=== PATIENT | male | born 1955 | race Caucasian/White ===

== ENCOUNTER → 2020-11-14 | Outpatient (CLI) | payer MEDICARE, SELFPAY ==
[2015-07-07 06:22] VITALS: BMI 38.1
== END | disposition home or self-care (01) ==
PROVIDERS: PCP Family Medicine; Referring Provider Urology; Visit Provider Urology
DX: N39.0 Urinary tract infection, site not specified (principal)
CPT/HCPCS: 87077; 87086; 87088; 87186

== ENCOUNTER → 2024-05-31 | Outpatient (CLI) | payer MEDICARE, SELFPAY | END | disposition home or self-care (01) | PROVIDERS: PCP Family Medicine; Referring Provider Urology; Visit Provider Urology | DX: R39.15 Urgency of urination (principal) | CPT/HCPCS: 87086 ==

== ENCOUNTER 2024-07-07 07:24 | Day surgery (SDC) | payer MEDICARE, SELFPAY ==
--- NOTE | 2024-07-02 09:24 | EKG12_ITS ---
Test Reason : PRE OP Blood Pressure : / mmHG Vent. Rate : 072 BPM Atrial Rate : 072 BPM P-R Int : 144 ms QRS Dur : 070 ms QT Int : 394 ms P-R-T Axes : 077 045 070 degrees QTc Int : 431 ms Normal sinus rhythm Nonspecific T wave abnormality Abnormal ECG Confirmed by JAY SEGAL, MELISSA ([id number]), health editor BEBETO OLIVIA ([id number]) on 07/02/2024 1:17:16 PM Referred By: LINDSEY Confirmed By:MELISSA THOMPSON MD
[2024-07-02 10:29] LABS: Hematocrit 42.3 % (40-54); Mean Corp Hgb Conc 33.1 g/dL (32-36); Mean Corpuscular Hgb 31.7 pg (27.0-32.0); Mean Corpuscular Volume 95.9 fL (80-94); Mean Platelet Vol. 8.9 fl (6.2-12.0); Platelet Count 259 K/mm3 (150-450); RBC Distribution Width CV 14.1 % (11.6-14.6); RBC Distribution Width SD 49.9 fl (35.1-43.9); Red Blood Count 4.41 M/mm3 (4.6-6.2); White Blood Count 7.4 K/mm3 (4.4-11.0)
[2024-07-02 10:49] LABS: Anion Gap 5 (5-15); BUN 11 mg/dL (7-18); BUN/Creat Ratio 11.7 RATIO (10-20); Calcium,Total 9.6 mg/dL (8.5-10.1); Chloride 110 mmol/L (98-107); Creatinine, Serum 0.94 mg/dL (0.70-1.30); EST Glomerular Filtration Rate 84 mL/min (>60); Est Glom Filt Rate - Afr Amer 102 mL/min (>60); Glucose 106 mg/dL (74-106); Potassium 3.9 mmol/L (3.5-5.1); Sodium Level 140 mmol/L (136-145)
[2024-07-02 11:09] LABS: Hemoglobin A1c 5.3 % (3.8-5.6)
[2024-07-07] VITALS (8 sets, daily range): BP systolic 135–152; BP diastolic 67–84; PULSE 64–72; RESP 16–18; TEMP 35.7–36.7; O2SAT 97–100; BMI 29.0
--- NOTE | 2024-07-07 07:51 | PRE.ANES_ITS ---
ASA Classification* ASA Classification ASA Classification: 3 Assessment & Plan Anesthesia* Anesthesia Assessment Anesthesia Assessment: Discussed sedation and/or anesthesia options, risks, benefits, and alternatives with patient/parents/legal guardian/POA. Questions invited. The patient/parents/legal guardian/POA seems to understand and agrees to proceed with anesthesia plan. Reviewed the physical assessment, medical history, allergy history and patient home medications list prior to surgery/procedure/anesthetic and documented any changes. Performed airway and anesthesia risk assessments. Anesthesia Type Anesthesia Type: General Anesthesia Focused Assessment* Airway Assessment Mouth opens: >3 cm Mallampati Score: II Focused Labs Anesthesia Preop lab: CBC WBC 7.4 K/mm3 (4.4-11.0) 07/02/24 09:47 RBC 4.41 M/mm3 (4.6-6.2) L 07/02/24 09:47 Hgb 14.0 g/dL (13.0-16.5) 07/02/24 09:47 Hct 42.3 % (40-54) 07/02/24 09:47 Plt Count 259 K/mm3 (150-450) 07/02/24 09:47 CHEMISTRY Potassium 3.9 mmol/L (3.5-5.1) 07/02/24 09:47 Sodium 140 mmol/L (136-145) 07/02/24 09:47 Magnesium 1.7 mg/dL (1.8-2.4) L 07/07/15 11:15 BUN 11 mg/dL (7-18) 07/02/24 09:47 Creatinine 0.94 mg/dL (0.70-1.30) 07/02/24 09:47 Glucose 106 mg/dL (74-106) 07/02/24 09:47 COAG Pre-Assessment Diagnosis/Proposed Procedure Planned Operative Procedure(s): TURP Anesthesia History Anesthesia History - technical sales manager: Anesthesia History - technical sales manager Hx Hospitalization Yes: 12/2023-03/2024 OFF AND 06/23/24 10:27 ON FOR TIA AND FALLS/UTI/ LONG HAULER COVID Any Problems With Anesthesia No 06/23/24 10:27 Cholinesterase deficiency No 06/23/24 10:27 You/Your Family Experience No 06/23/24 10:27 fever (hyperthermia) with Relationship Recent Exposure to Contagious No 07/07/15 06:22 Disease Does patient have nerve No 06/23/24 10:27 stimulator Patient instructed to have device shut off --Does patient have Pacemaker or ICD? When Was Last Pacemaker Check QUESTION #4 FULL TEXT: You/Your Family Experience fever (hyperthermia) with Anesthesia Last Oral Intake Last Oral intake: Last Oral Intake NPO since Meds taken in AM with sips of water? Meds patient instructed to take am of surgery PONV PONV - technical sales manager: PONV - technical sales manager Female No 06/23/24 10:27 HX of Motion Sickness No 06/23/24 10:27 HX of N/V After Surgery No 06/23/24 10:27 Non-Smoker Yes 06/23/24 10:27 Duration of Surgery greater Yes 06/23/24 10:27 than 60 minutes Number of Risk Factors 2 06/23/24 10:27 PONV Score Moderate Risk 06/23/24 10:27 Respiratory Assessment Respiratory Assessment - technical sales manager: Respiratory Tract Infection Hx - technical sales manager Hx Respiratory Tract Infection No 06/23/24 10:27 STOP Sleep Apnea STOP Sleep Apnea - technical sales manager: STOP Sleep Apnea - technical sales manager Hx Hypertension Yes: CONTROLLED WITH MED 06/23/24 10:27 Hx Sleep Apnea Yes 06/23/24 10:27 CPAP Yes 06/23/24 10:27 BIPAP No 06/23/24 10:27 Do you snore loudly (louder than talking or can be heard Do you often feel tired/ fatigued/ sleepy during daytime? Has anyone observed you stop breathing during sleep? STOP Results Positive 06/23/24 10:27 QUESTION #5 FULL TEXT : Do you snore loudly (louder than talking or can be heard through closed doors)? Tobacco Use History Tobacco Use History - technical sales manager: Tobacco Use History - technical sales manager Tobacco Use Smoking Status Never smoker 06/23/24 10:27 Hx Tobacco Use No 06/23/24 10:27 Years Smoking Packs Smoked per Day Smoking Cessation Date was within the last 15 years Hx Smoking Cessation Date Hx Smoking Cessation Counseling Hematologic Medial History Hematologic Hx - technical sales manager: Hematologic Medical Hx - public address announcer Hx of Blood Transfusion No 06/23/24 10:27 Hx of Transfusion in last 3 No 06/23/24 10:27 Months Date of Last Transfusion (if within last 3 months) Ever experience any problems No 06/23/24 10:27 with transfusion(s)? Specify any problems Hx of Preganancy in last 3 N/A 06/23/24 10:27 Months Nurse Filling Out Transfusion DSCHRIBER 06/23/24 10:27 & Questions: Date: 06/23/24 06/23/24 10:27 Time: 10:31 06/23/24 10:27 Patient unable to answer at this time (ie. confused, unrespo /Reproduction History /Reproductive History - technical sales manager: /Reproductive Hx- technical sales manager Hx Now No 06/23/24 10:27 Gestational Age (in weeks): EDC: Hx Hx Para Hx Section SAB No 06/23/24 10:27 Active Medications Active Medications: Current Medications Generic Name Dose Route Start Last Admin Trade Name Freq PRN Reason Stop Dose Admin Cefazolin Sodium 2 gm/ N/A 20 mls @ 400 mls/hr 07/07/24 11:55 IV 07/07/24 11:57 PREOP ONE Lactated Ringer's 1,000 mls @ 15 mls/hr 07/07/24 07:45 IV 07/10/24 02:24 .Q48H [facility] Protocol PFSH Medical History Deaf Wears glasses Wears hearing aid Depression Diabetes Rheumatoid arthritis Bladder disease Prostate disease Fatty liver High cholesterol Back pain COVID-19 long hauler Syncope TIA (transient ischemic attack) Seizures Dietary restriction History of diverticulitis Hiccups Gastric reflux Non-smoker CPAP (continuous positive airway pressure) dependence Asthma History of echocardiogram History of stress test Cardiology follow-up encounter Hypertension History of heart attack Home Medications ?Medication ?Instructions ?Recorded ?Last Taken ?Type ascorbic acid (vitamin C) 500 mg 1,000 mg PO QHS 04/17/15 Unknown History tablet (Vitamin C) bupropion HCl 150 mg 24 hr tablet, 150 mg PO DAILY 04/17/15 Unknown History extended release coenzyme Q10 100 mg capsule (Co 100 mg PO DAILY 04/17/15 Unknown History Q-10) folic acid 400 mcg tablet 0.8 mg PO QHS 04/17/15 Unknown History multivitamin with folic acid 400 1 tab PO DAILY 04/17/15 Unknown History mcg tablet (Thera) niacin 500 mg tablet,extended 500 mg PO QHS 04/17/15 Unknown History release nitroglycerin 0.4 mg sublingual 0.4 mg sublingual Q5M PRN Chest 04/17/15 Unknown History tablet Pain vitamin E 268 mg (400 unit) capsule 400 unit PO DAILY 04/17/15 Unknown History albuterol sulfate 90 mcg/actuation 1 inh inhalation Q4H PRN shortness 06/23/24 Unknown History breath activated powder inhaler of breath or wheezing allopurinol 300 mg tablet 300 mg PO DAILY 06/23/24 Unknown History aspirin 325 mg capsule 325 mg PO DAILY 06/23/24 Unknown History atorvastatin 40 mg tablet 40 mg PO QHS 06/23/24 Unknown History calcium carbonate 500 mg PO DAILY 06/23/24 Unknown History cholecalciferol (vitamin D3) 25 25 mcg PO DAILY 06/23/24 Unknown History mcg (1,000 unit) capsule (Vitamin D3) cyanocobalamin-liver extract tablet 1 tab PO DAILY 06/23/24 Unknown History fluticasone furoate 200 1 inh inhalation DAILY 06/23/24 Unknown History mcg-vilanterol 25 mcg/dose inhalation powder (Breo Ellipta) magnesium 200 mg tablet 400 mg PO QHS 06/23/24 Unknown History metoprolol succinate 100 mg 100 mg PO QHS 06/23/24 Unknown History tablet,extended release 24 hr loqpp-8-soi-fish oil 1 gram capsule 1 cap PO DAILY 06/23/24 Unknown History omeprazole 40 mg capsule,delayed 20 mg PO DAILY 06/23/24 Unknown History release potassium chloride 20 mEq 20 meq PO DAILY 06/23/24 Unknown History tablet,extended release(part/cryst) semaglutide 2 mg/dose (8 mg/3 mL) 2 mg subcut MO 06/23/24 Unknown History subcutaneous pen injector (Ozempic) vit C 250 mg-E 90 mg-zinc 40 1 tab PO BID 06/23/24 Unknown History mg-copper 1 [id number]-lbpaaf chew tablet (PreserVision AREDS-2) Allergy/AdvReac Type Severity Reaction Status Date / Time gabapentin Allergy Severe Angioedema Verified 06/23/24 10:08 methotrexate Allergy Severe Angioedema Verified 06/23/24 10:08 leflunomide Allergy Intermediate Other Verified 06/25/24 14:11 sulfasalazine Allergy Intermediate Other Verified 06/25/24 14:11 Surgical History History of esophagogastroduodenoscopy (EGD) Hx of colonoscopy Hx of lithotripsy Hx of lumbar discectomy History of lumbar fusion Hx of prostatectomy Social History Smoking Status: Never smoker Review of Systems (Anesthesia) ROS Narrative System reviewed and no additional complaints, except as documented.
[2024-07-07] MEDS: Pantoprazole Sodium 20 MG Tablet PO (08:17)
[2024-07-07] MEDS: Lactated Ringers 1,000 ML 15 ML IV (08:31)
[2024-07-07 08:54] LABS: Bedside Glucose 94 mg/dL (74-106)
--- NOTE | 2024-07-07 09:35 | PROS_PTH ---
PATIENT: KOURTNEY BANKS LOC: [facility] U#:[id number] AGE/SX: 69/M ROOM: RE07/07/[address]: Dr. Tavo Marr MD : [id number] BED: DIS: 07/07/2024 SPEC #: [id number] RECD: 07/07/24 14:00 STATUS: JONATHAN JAMA #: [id number] XAVIER: 07/07/24 09:[address]: Tavo Marr DEPT: SURGICAL PATHOLOGY RECD BY: Dennys Cesar ENTERED: 07/08/24 07:23 SP TYPE: TURP OTHR DR: Dr. Rigo Saxena MD Tissues: Prostate, NOS Procedures: Surgery Specimen Level IV HEADER OPERATION: Transurethral resection prostate PRE-OP DIAGNOSIS: Benign prostatic hypertrophy TISSUE SUBMITTED: Prostate chips MICROSCOPIC DIAGNOSIS Prostate, transurethral resection: Benign nodular hyperplasia, primarily stromal type. Chronic inflammation. Benign urothelium with associated mild chronic inflammation. AM.mr 07/09/2024 MICROSCOPIC DESCRIPTION Slides are reviewed. GROSS DESCRIPTION Received is one container labeled with the patient's name and designated prostate tissue. The specimen consists of multiple irregular fragments of pink-donaldson, rubbery, soft tissue that in aggregate weigh 5.3 gm and measure in aggregate 4.5 x 4.5 x 1.0 cm. The entire specimen is submitted in six cassettes. 07/08/2024 TC:3 CPT: 84472
--- NOTE | 2024-07-07 10:25 | HP.PCM_ITS ---
HPI - General General Date of Service: 07/07/24 Chief Complaint: BPH with obstruction HPI Narrative KOURTNEY BANKS, is a 69 M who presents for a transurethral resection of the prostate he has had a prior prior prostate procedure long time ago and he is got some obstructions organ to do a TURP probably will send him home with a 20 Kinyarwanda catheter. [facility] Medical History Deaf Wears glasses Wears hearing aid Depression Diabetes Rheumatoid arthritis Bladder disease Prostate disease Fatty liver High cholesterol Back pain COVID-19 bertin hauler Syncope TIA (transient ischemic attack) Seizures Dietary restriction History of diverticulitis Hiccups Gastric reflux Non-smoker CPAP (continuous positive airway pressure) dependence Asthma History of echocardiogram History of stress test Cardiology follow-up encounter Hypertension History of heart attack Home Medications ?Medication ?Instructions ?Recorded ?Last Taken ?Type ascorbic acid (vitamin C) 500 mg 1,000 mg PO QHS 04/17/15 07/06/24 History tablet (Vitamin C) bupropion HCl 150 mg 24 hr tablet, 150 mg PO DAILY 04/17/15 07/06/24 History extended release coenzyme Q10 100 mg capsule (Co 100 mg PO DAILY 04/17/15 07/06/24 History Q-10) folic acid 400 mcg tablet 0.8 mg PO QHS 04/17/15 07/06/24 History multivitamin with folic acid 400 1 tab PO DAILY 04/17/15 07/06/24 History mcg tablet (Thera) niacin 500 mg tablet,extended 500 mg PO QHS 04/17/15 07/06/24 History release nitroglycerin 0.4 mg sublingual 0.4 mg sublingual Q5M PRN Chest 04/17/15 03/28/24 History tablet Pain vitamin E 268 mg (400 unit) capsule 400 unit PO DAILY 04/17/15 07/06/24 History albuterol sulfate 90 mcg/actuation 1 inh inhalation Q4H PRN shortness 06/23/24 Unknown History breath activated powder inhaler of breath or wheezing allopurinol 300 mg tablet 300 mg PO DAILY 06/23/24 07/06/24 History aspirin 325 mg capsule 325 mg PO DAILY 06/23/24 06/30/24 History atorvastatin 40 mg tablet 40 mg PO QHS 06/23/24 Unknown History calcium carbonate 500 mg PO DAILY 06/23/24 07/06/24 History cholecalciferol (vitamin D3) 25 25 mcg PO DAILY 06/23/24 07/06/24 History mcg (1,000 unit) capsule (Vitamin D3) cyanocobalamin-liver extract tablet 1 tab PO DAILY 06/23/24 07/06/24 History fluticasone furoate 200 1 inh inhalation DAILY 06/23/24 07/06/24 History mcg-vilanterol 25 mcg/dose inhalation powder (Breo Ellipta) magnesium 200 mg tablet 400 mg PO QHS 06/23/24 07/06/24 History metoprolol succinate 100 mg 100 mg PO QHS 06/23/24 07/06/24 History tablet,extended release 24 hr mblep-9-vig-fish oil 1 gram capsule 1 cap PO DAILY 06/23/24 07/06/24 History omeprazole 40 mg capsule,delayed 20 mg PO DAILY 06/23/24 07/07/24 History release potassium chloride 20 mEq 20 meq PO DAILY 06/23/24 07/06/24 History tablet,extended release(part/cryst) semaglutide 2 mg/dose (8 mg/3 mL) 2 mg subcut MO 06/23/24 06/29/24 History subcutaneous pen injector (Ozempic) vit C 250 mg-E 90 mg-zinc 40 1 tab PO BID 06/23/24 07/06/24 History mg-copper 1 [id number]-hgvqvj-wkvaqv chew tablet (PreserVision AREDS-2) Allergy/AdvReac Type Severity Reaction Status Date / Time gabapentin Allergy Severe Angioedema Verified 07/07/24 08:09 methotrexate Allergy Severe Angioedema Verified 07/07/24 08:09 leflunomide Allergy Intermediate Other Verified 07/07/24 08:09 sulfasalazine Allergy Intermediate Other Verified 07/07/24 08:09 Surgical History History of esophagogastroduodenoscopy (EGD) Hx of colonoscopy Hx of lithotripsy Hx of lumbar discectomy History of lumbar fusion Hx of prostatectomy Social History Smoking Status: Never smoker Vital Signs Vital Signs Vital Signs: 07/07/24 08:14 07/07/24 08:14 Temperature 98.0 F Temperature Source Temporal Pulse Rate 72 Respiratory Rate 18 Respiratory Pattern Normal Blood Pressure 135/67 H Blood Pressure Mean 89 Blood Pressure Source Monitor Blood Pressure Position Semi-Fowlers Blood Pressure Location Left Arm Pulse Ox 100 Oxygen Delivery Method Room Air Weight Weight: 89 kg Body Mass Index (BMI) 29.0 Results Lab / Micro Data 07/02/24 09:47 07/02/24 09:47 Labs: Laboratory Results - last 24 hr 07/07/24 08:08: POC Glucose 94
[2024-07-07] MEDS: Cefazolin 2 GM in Syringe IV (10:47)
--- NOTE | 2024-07-07 10:51 | PCM.DC ---
Discharge Instructions Diet Discharge Diet: No restrictions Activity Discharge Activity: Return to Normal Activity and May Not Drive (while taking narcotic pain medications.) Dressing / Incision Call your doctor if you observe: Fever of 101 or Higher Catheter: [place] to leg bag Drain: [place] Follow Up Care Please Follow Up With: Tavo Marr MD When: Call [phone] for an appointment Test Results: Test results from this visit will be discussed in further detail at your follow-up appointment, if applicable. Discharge Plan Admission Primary Reason for Your Visit: WOO Attending Provider: Tavo Marr Primary Care Provider: Rigo Saxena Instructions Patient Instructions: WOO Home Recovery Print Language: [place] Discharge Orders/Prescriptions Prescriptions: New ciprofloxacin HCl [Cipro] 500 mg tablet 500 mg PO BID Qty: 14 0RF Continued bupropion HCl 150 MG tablet extended release 24 hr 150 mg PO DAILY Patient Comments: mood folic acid 0.4 MG tablet 0.8 mg PO QHS Patient Comments: supplement ascorbic acid (vitamin C) [Vitamin C] 500 MG tablet 1,000 mg PO QHS Patient Comments: supplement vitamin E 400 UNIT capsule 400 unit PO DAILY Patient Comments: supplement coenzyme Q10 [Co Q-10] 100 MG capsule 100 mg PO DAILY Patient Comments: supplement niacin 500 MG tablet 500 mg PO QHS Patient Comments: high cholesterol multivitamin with folic acid [Thera] 1 TABLET tablet 1 tab PO DAILY Patient Comments: supplement nitroglycerin 0.4 MG tablet 0.4 mg sublingual Q5M PRN (Reason: Chest Pain) Patient Comments: chestpain Ozempic 2 mg/dose (8 mg/3 mL) pen injector 2 mg subcut MO aspirin 325 mg capsule 325 mg PO DAILY omeprazole 40 mg capsule,delayed release(DR/EC) 20 mg PO DAILY atorvastatin 40 mg tablet 40 mg PO QHS metoprolol succinate 100 mg tablet extended release 24 hr 100 mg PO QHS magnesium 200 mg tablet 400 mg PO QHS cholecalciferol (vitamin D3) [Vitamin D3] 25 mcg (1,000 unit) capsule 25 mcg PO DAILY potassium chloride 20 mEq tablet,ER particles/crystals 20 meq PO DAILY albuterol sulfate 90 mcg/actuation aerosol powdr breath activated 1 inh inhalation Q4H PRN (Reason: shortness of breath or wheezing) calcium carbonate 500 mg calcium (1,250 mg) tablet,chewable 500 mg PO DAILY cyanocobalamin-liver extract Tablet 1 tab PO DAILY icyka-9-xpz-fish oil 1 gram capsule 1 cap PO DAILY fluticasone furoate-vilanterol [Breo Ellipta] 200-25 mcg/dose blister with device 1 inh inhalation DAILY PreserVision AREDS-2 250-90-40-1 mg tablet,chewable 1 tab PO BID allopurinol 300 mg tablet 300 mg PO DAILY Referrals / Follow Up: Tavo Marr MD [Med Staff - Active Staff] - Rigo Saxena MD [Primary Care Provider] - Disposition Disposition (needs filled in before D/C Order can be placed): Home, Self Care
--- NOTE | 2024-07-07 11:24 | OP.PCM_ITS ---
Report of Operation Date of Procedure: 07/07/24 Pre-Operative Diagnosis: BPH with obstruction Post-Operative Diagnosis: Same Surgery/Procedure Performed:: Transurethral resection of the prostate Description of Surgical Findings:: 69-year-old male who has a history that long time ago he had a diverticulectomy removed from the bladder and after this he was able to urinate much better at the time he had a simple prostatectomy as well, since then he has been doing well was urinating well but then recently has been having recurrent bladder infections and recurrent infection of the bladder and poor emptying on cystoscopy is found to have significant obstruction and BPH with obstruction so organ to proceed with a TURP he is never had a prior TURP so we will proceed with a transurethral resection of the prostate hopefully this will help empty out the open up the channel so that he can empty his bladder better relieve the and infections in and leave relieve the obstruction has been having. Patient was taken back to the operating room after smooth induction of anesthesia he was placed in dorsolithotomy position the penis and testicles were prepped and draped in usual sterile fashion. I first went into the urethra with a 24 Citizen [place] noncontinuous flow Olympus bipolar resectoscope he had a wide open urethral channel right in front of the sphincter there was a little narrowing in the channel but I was able to get through that with the cystoscope without any problems identified the verumontanum and then identified a significant of obstructive tissue in the floor of the prostate and the lateral lobes of the prostate I then switched over to the medium size loop and I did a resection of the prostate resected the middle part of the prostate the right lobe of the prostate left lobe prostate there was very little anterior tissue. After the resection was completed he had a nice wide open channel I then cauterized extensively until there was no bleeding. We Ellik out all the chips out of the bladder and then I placed a 20 [place] catheter into the bladder. The patient will go home with a catheter let this heal up properly and will see me in the office a week later to remove the catheter he will go home today with a 20 Fren ch catheter to gravity drainage. And follow-up in 1 week for catheter removal Surgeon: Tavo Marr Type of Anesthesia: General Specimen's removed: prostate chips Drains: 20 fr dodd Estimated Blood Loss (mL): 5 Procedure Start Time: 10:47 Procedure Stop Time: 11:28 Admit VTE Documentation VTE Present on Admission: No VTE Mechan Device Prophylaxis: SCD's VTE Pharm Prophylaxis ordered?: No
--- NOTE | 2024-07-07 12:17 | PCM.POST.ANE ---
Anesthesia: Postop Eval I Current Vital Signs Temperature: 97.8 F Pulse Rate: 65 Blood Pressure: 143/72 Respiratory Rate: 16 Pulse Ox: 98 Oxygen Delivery Method: Room Air Assessment Airway patent: Yes Spontaneous unlabored respirations: Yes Mental status: Awake and Calm nausea: No Vomiting: No Anesthesia Complication: No Fluid Hydration Crystalloid volume administer (ml): 600 Total IV fluid infused: 600 Progress Note Anesthesia document: Postop Eval 1 completed: Yes
--- NOTE | 2024-07-07 17:41 | POSTOPAN2_ITS ---
Anesthesia Postop Eval I Sum Postop Eval Completion status Anesthesia document: Postop Eval 1 completed: Yes Anesthesia Postop Eval I Summary Anesthesia Postop Eval I Summary: Anesthesia Postop Eval I: Assessment Summary Airway patent Yes 07/07/24 12:19 FORMING MACHINE [email or web address].[email or web address] Spontaneous unlabored Yes 07/07/24 12:19 FORMING MACHINE OPERATOR.[email or web address] respirations Mental status Awake,Calm 07/07/24 12:19 FORMING MACHINE OPERATOR.[email or web address] nausea No 07/07/24 12:19 FORMING MACHINE OPERATOR.[email or web address] Vomiting No 07/07/24 12:19 FORMING MACHINE OPERATOR.[email or web address] Anesthesia Postop Eval I: Fluid Summary Crystalloid volume administer 600 07/07/24 12:19 FORMING MACHINE OPERATOR.[email or web address] (ml) Colloids volume administered ( ml) Blood Product volume administered (ml) Total IV fluid infused 600 07/07/24 12:19 FORMING MACHINE OPERATOR.[email or web address] Anesthesia Postop Eval I: Summary Notes Anesthesia Complication No 07/07/24 12:19 FORMING MACHINE OPERATOR.[email or web address] Anesthesia Complication Comment: Post-operative progress note Anesthesia: Postop Eval II Evaluation Mental status: Awake and Calm Pain Level: 1 nausea: No Vomiting: No Complications Anesthesia Complication: No
--- NOTE | 2024-07-07 17:41 | PCM.POSTANE2 ---
Anesthesia Postop Eval I Sum Postop Eval Completion status Anesthesia document: Postop Eval 1 completed: Yes Anesthesia Postop Eval I Summary Anesthesia Postop Eval I Summary: Anesthesia Postop Eval I: Assessment Summary Airway patent Yes 07/07/24 12:19 [email or web address] [email or web address] Spontaneous unlabored Yes 07/07/24 12:19 CARDIOLOGY [email or web address].[email or web address] respirations Mental status Awake,Calm 07/07/24 12:19 [email or web address] [email or web address] nausea No 07/07/24 12:19 CARDIOLOGY SPECIALIST.[email or web address] Vomiting No 07/07/24 12:19 CARDIOLOGY [email or web address].[email or web address] Anesthesia Postop Eval I: Fluid Summary Crystalloid volume administer 600 07/07/24 12:19 CARDIOLOGY [email or web address].[email or web address] (ml) Colloids volume administered ( ml) Blood Product volume administered (ml) Total IV fluid infused 600 07/07/24 12:19 CARDIOLOGY SPECIALIST.[email or web address] Anesthesia Postop Eval I: Summary Notes Anesthesia Complication No 07/07/24 12:19 [email or web address] SPECIALIST.[email or web address] Anesthesia Complication Comment: Post-operative progress note Anesthesia: Postop Eval II Evaluation Mental status: Awake and Calm Pain Level: 1 nausea: No Vomiting: No Complications Anesthesia Complication: No
== END 2024-07-07 13:18 | disposition home or self-care (01) ==
LOC: SDC 07:25 → AC 07:38
PROVIDERS: Anesthesiology; PCP Family Medicine; Referring Provider Urology; Visit Provider Urology
PROC: (CPT 52601; principal; 2024-07-07 09:25)
DX: N40.1 Benign prostatic hyperplasia with lower urinary tract symptoms (principal); E11.9 Type 2 diabetes mellitus without complications; E78.00 Pure hypercholesterolemia, unspecified; I10 Essential (primary) hypertension; F32.A Depression, unspecified; K21.9 Gastro-esophageal reflux disease without esophagitis; I25.2 Old myocardial infarction; Z79.51 Long term (current) use of inhaled steroids; Z79.82 Long term (current) use of aspirin; Z79.899 Other long term (current) drug therapy; Z86.16 Personal history of COVID-19
CPT/HCPCS: 52601; 00914; 36415; 80048; 82962; 83036; 85027; 88305; 93005; J7120; J2405